=== PATIENT | male | born 1990 | race Caucasian/White ===

== ENCOUNTER 2020-04-22 19:02 | Emergency (ER) | payer MEDICAID ==
[~2020-04-22] VITALS: Ht 165.1 cm; Wt 76.2 kg
[2020-04-22 19:07] VITALS: Ht 165.1 cm; Wt 76.2 kg
[2020-04-22 20:57] VITALS: BP 120/71
== END 2020-04-22 20:57 | disposition home or self-care (01) ==
LOC: ED 19:02
DX: S91.311A Laceration without foreign body, right foot, initial encounter (principal); W26.0XXA Contact with knife, initial encounter; Y93.89 Activity, other specified; Y92.89 Other specified places as the place of occurrence of the external cause; Y99.8 Other external cause status
CPT/HCPCS: J2001

== ENCOUNTER 2020-04-24 15:11 | Emergency (ER) | payer MEDICAID ==
[~2020-04-24] VITALS: Ht 167.6 cm; Wt 64.9 kg
[2020-04-24 15:20] VITALS: BP 124/67; Ht 167.6 cm; Wt 64.9 kg
== END 2020-04-24 16:25 | disposition home or self-care (01) ==
LOC: ED 15:11
DX: S91.311D Laceration without foreign body, right foot, subsequent encounter (principal); X58.XXXD Exposure to other specified factors, subsequent encounter

== ENCOUNTER 2020-05-01 18:28 | Emergency (ER) | payer MEDICAID ==
[~2020-05-01] VITALS: Ht 167.6 cm; Wt 78.9 kg
[2020-05-01 18:34] VITALS: BP 124/74; Ht 167.6 cm; Wt 78.9 kg
== END 2020-05-01 18:55 | disposition home or self-care (01) ==
LOC: ED 18:28
DX: S91.311D Laceration without foreign body, right foot, subsequent encounter (principal); X58.XXXD Exposure to other specified factors, subsequent encounter